=== PATIENT | female | born 1980 ===

== ENCOUNTER 2021-07-16 08:23 | Inpatient (IN) | payer OTHER ==
[~2021-07-16] VITALS: Ht 157.5 cm; Wt 110.2 kg
[2021-07-16] MEDS ORDERED: POTCHL20ER PO (08:37)
[2021-07-16] MEDS ORDERED: TRAM50 PO (08:37)
[2021-07-16] MEDS ORDERED: RIFA550T2 PO (08:38)
[2021-07-16] MEDS ORDERED: PANT40 PO (08:38)
[2021-07-16] MEDS ORDERED: FURO40 PO (08:41)
[2021-07-16] MEDS ORDERED: ZYRTEC10 M2 PO (08:41)
[2021-07-16] MEDS ORDERED: ALDACTONE100 MG PO (08:41)
[2021-07-16] MEDS ORDERED: CONSTULOSE PO (08:43)
[2021-07-16] MEDS ORDERED: HYDPAM100 PO (08:44)
[2021-07-16] MEDS ORDERED: PROM25 PO (08:45)
[2021-07-16] MEDS ORDERED: Naltrexone HCl50 MG PO (08:46)
[2021-07-16 08:57] LABS: BASOPHILS ABSOLUTE AUTO 0.05 K/mm3 (0.00-0.23); BASOPHILS PERCENT AUTO 1 % (0-2); EOSINOPHILS ABSOLUTE AUTO 0.05 K/mm3 (0.00-0.68); EOSINOPHILS PERCENT AUTO 1 % (0-6); Hematocrit 30.9 % (33.0-51.0); Hemoglobin 10.1 g/dL (11.5-16.0); IMMATURE GRAN ABSOLUTE AUTO 0.01 K/mm3 (0.00-0.10); IMMATURE GRAN PERCENT AUTO 0 % (0-1); LYMPHOCYTES PERCENT AUTO 17 % (21-46); MONOCYTES ABSOLUTE AUTO 0.43 K/mm3 (0.16-1.47); MONOCYTES PERCENT AUTO 9 % (4-13); Mean Corpuscular HGB 31.7 pg (26.0-34.0); Mean Corpuscular HGB Conc 32.7 g/dL (31.5-36.5); Mean Corpuscular Volume 97 fL (80-100); NEUTROPHILS ABSOLUTE AUTO 3.31 K/mm3 (1.96-9.15); NEUTROPHILS PERCENT AUTO 71 % (41-73); Platelet Count 76 K/mm3 (150-400); RDW Coefficient Variation 14.7 % (11.7-14.2); RDW Standard Deviation 49.7 fL (35.1-46.3); Red Blood Cell Count 3.19 M/mm3 (3.80-5.20); White Blood Cell Count 4.65 K/mm3 (4.00-11.30)
[2021-07-16 09:15] LABS: Source, Urine Catheter
[2021-07-16 09:18] LABS: Albumin, Blood 1.9 g/dL (3.4-5.0); Albumin/Globulin Ratio 0.3 (0.8-1.8); Bilirubin, Direct 1.7 mg/dL (0.0-0.3); Bilirubin, Indirect 1.3 mg/dL (0.1-0.7); Globulin, Blood 6.2 g/dL (2.2-4.0); Total Protein, Blood 8.1 g/dL (6.4-8.2)
[2021-07-16 09:19] LABS: Albumin, Blood 1.9 g/dL (3.4-5.0); Albumin/Globulin Ratio 0.3 (0.8-1.8); Bun/Creatinine Ratio 18.8 (12.0-20.0); Calcium, Blood 8.7 mg/dL (8.5-10.1); Creatinine, Blood 1.17 mg/dL (0.40-1.00); Globulin, Blood 6.1 g/dL (2.2-4.0); Potassium, Blood 4.8 mmol/L (3.5-5.5)
[2021-07-16 09:23] LABS: Appearance, Urine Clear (Clear); Bilirubin, Urine Neg (Neg); Blood, Urine 5+ (Neg); Color, Urine Yellow (P-Yellow); Glucose Qualitative, Urine Neg (Neg); Ketones, Urine Neg (Neg); Leukocyte Esterase, Urine Neg (Neg); Nitrite, Urine Neg (Neg); Protein, Urine 1+ (Neg); Urobilinogen, Urine NORM (Normal)
[2021-07-16 09:33] LABS: International Normalized Ratio 1.38; Prothrombin Time Results 14.2 Sec (9.7-11.5)
[2021-07-16 09:36] LABS: Bacteria Few /hpf; Granular Casts 0-2 /lpf (0); Red Blood Cells, Urine 50-100 /hpf (0-2); Squamous Epithelial Cells Rare /hpf (Few); White Blood Cells, Urine 0-2 /hpf (0-5)
[2021-07-16 09:37] LABS: Renal Epithelial Rare /hpf (0-Rare)
[2021-07-16 09:50] LABS: U Amphetamine Screen Not Detected; U Barbituate Screen Not Detected; U Benzodiazapine Screen DETECTED; U Buprenorphine Screen Not Detected; U Cannabinoids Screen Not Detected; U Cocaine Screen Not Detected; U Methadone Screen Not Detected; U Methamphetamine Screen Not Detected; U Opiates Screen Not Detected; U Oxycodone Screen Not Detected; U Phencyclidine Screen Not Detected; U Propoxyphene Screen Not Detected
--- NOTE | 2021-07-16 15:43 | NUR ---
PATIENT ARRIVAL PATIENT ARRIVED FROM ED BY GURNY AND TRANSFERD TO PCU BED BY SLIDER SHEET. VSS. SPO2 >90% ON RA. TELE SINUS TACH. PATIENT IS A/OX3. WAS UNABLE TO STATE THE DATE TODAY. PATIENT HAS TREMORS. CIWA IS 8. BED IN LOWEST POSITION AND CALL LIGHT WITHIN REACH. WILL CONTINUE TO MONITOR AND PROVIDE CARE.
--- NOTE | 2021-07-16 17:09 | NUR ---
SHIFT SUMMARY PATIENT IS A/OX4, DROWSY AT THE MOMENT AND SLEEPING. VSS. TELE SINUS TACH. CIWA NEEDED, SEE ORDERS. PATIENT REPORTS NO CHEST PAIN, PAIN, OR SOB. PATIENT HAS A FERRARO IN PLACE DRAINING WITH GRAVITY. NO ACUTE CHANGES. CALL LIGHT WITHIN REACH. WILL CONTINUE TO MONITOR AND PROVIDE CARE UNTIL HAND OFF WITH NEXT SHIFT.
--- NOTE | 2021-07-17 04:08 | NUR ---
SHIFT AUMMARY: PT HAD RESTLESS SHIFT, CONFUSED AND FOGERTFUL AFTER REORIENTATION, CALLING OUT BECAUSE SHE STATES SHES "LONELY" VSS, REMAINS IN AFIB WITH RATE IN THE 90'S, URINE SPEC OBTAINED AND SENT EARLIER IN SHIFT, PT C/O CHRONIC BACK PAIN, REPOSITIONED BUT PT STATES NO RELIEF, CALL TO MD AND TYLENOL SUPP GIVEN WITH MODERATE EFFECT, O2 SATS >95%, FERRARO DRAINING GOOD AMOUNT OR URINE, BED LOCKED AND LOW, CALL LIGHT IN REACH, BED ALARM ACTIVATED. VANESSA HERRON
[2021-07-17 04:32] LABS: BASOPHILS ABSOLUTE AUTO 0.05 K/mm3 (0.00-0.23); BASOPHILS PERCENT AUTO 1 % (0-2); EOSINOPHILS ABSOLUTE AUTO 0.16 K/mm3 (0.00-0.68); EOSINOPHILS PERCENT AUTO 4 % (0-6); Hematocrit 27.2 % (33.0-51.0); Hemoglobin 8.8 g/dL (11.5-16.0); IMMATURE GRAN ABSOLUTE AUTO 0.01 K/mm3 (0.00-0.10); IMMATURE GRAN PERCENT AUTO 0 % (0-1); LYMPHOCYTES ABSOLUTE AUTO 1.15 K/mm3 (0.84-5.20); LYMPHOCYTES PERCENT AUTO 28 % (21-46); MONOCYTES ABSOLUTE AUTO 0.45 K/mm3 (0.16-1.47); MONOCYTES PERCENT AUTO 11 % (4-13); Mean Corpuscular HGB 31.8 pg (26.0-34.0); Mean Corpuscular HGB Conc 32.4 g/dL (31.5-36.5); Mean Corpuscular Volume 98 fL (80-100); Mean Platelet Volume 10.4 fL (9.1-12.4); NEUTROPHILS ABSOLUTE AUTO 2.24 K/mm3 (1.96-9.15); NEUTROPHILS PERCENT AUTO 55 % (41-73); Platelet Count 73 K/mm3 (150-400); RDW Standard Deviation 50.3 fL (35.1-46.3); Red Blood Cell Count 2.77 M/mm3 (3.80-5.20); White Blood Cell Count 4.06 K/mm3 (4.00-11.30)
[2021-07-17 04:49] LABS: Albumin, Blood 1.5 g/dL (3.4-5.0); Anion Gap 7 mmol/L (6-16); Blood Urea Nitrogen 17 mg/dL (8-24); CO2, Blood 19 mmol/L (21-32); Calcium, Blood 8.1 mg/dL (8.5-10.1); Chloride, Blood 112 mmol/L (98-108); Creatinine, Blood 1.06 mg/dL (0.40-1.00); Glomerular Filtration Rate 57 (60-); Glucose, Blood 112 mg/dL (70-99); Magnesium, Blood 1.4 mg/dL (1.6-2.4); Phosphorus, Blood 3.3 mg/dL (2.5-4.9); Potassium, Blood 4.2 mmol/L (3.5-5.5); Sodium, Blood 138 mmol/L (136-145)
--- NOTE | 2021-07-17 09:27 | NUR ---
CARE ASSUMPTION THIS RN ASSUMED CARE AT 0700. VSS. TELE SINUS TACH AT 103. A/OX4. PATIENT HAS NO CHEST PAIN, PAIN, OR SOB. FERRARO IN PLACE DRAINING WITH GRAVITY. RECTAL TUBE IN PLACE DRAINING WITH GRAVITY. PHYSICAL THERAPY IN WITH PATIENT WITH AM. BED IN LOWEST POSITION AND CALL LIGHT WITHIN REACH. WILL CONTINUE TO MONITOR AND PROVIDE CARE.
--- NOTE | 2021-07-17 17:49 | NUR ---
SHIFT SUMMARY PATIENT A/OX4. CIWA HAS BEEN 1-2, PER ORDER DO IT FOR 4HOURS THE NEXT 72 HOURS AND THEN CAN BE DC'D. VSS. TELE SINUS TACH. PATIENT REPORS PAIN FROM THE RECTAL TUBE THAT COMES AND GOES. PATIENT HAS LEAKING AROUND THE RECTAL TUBE. RECTAL TUBE IS DRAINING WITH GRAVITY. FERRARO CATH DRAINING WITH GRAVITY. PATIENT TURNS INDEPENDENTLY WITH REMINDERS AND MILD ASSISTANCE. PATIENT MOM IS AT BEDSIDE. CALL LIGHT IS WITHIN REACH AND BED IN LOWEST POSITION. NO ACUTE CHANGES. WILL CONTINUE TO MONITOR AND PROVIDE CARE UNTIL HAND OFF WITH NEXT SHIFT.
[2021-07-18 05:34] LABS: Hematocrit 24.2 % (33.0-51.0); International Normalized Ratio 1.52; Mean Corpuscular HGB 31.7 pg (26.0-34.0); Mean Corpuscular HGB Conc 33.1 g/dL (31.5-36.5); Mean Corpuscular Volume 96 fL (80-100); Mean Platelet Volume 10.5 fL (9.1-12.4); Platelet Count 72 K/mm3 (150-400); Prothrombin Time Results 15.5 Sec (9.7-11.5); RDW Coefficient Variation 15.3 % (11.7-14.2); RDW Standard Deviation 52.7 fL (35.1-46.3); Red Blood Cell Count 2.52 M/mm3 (3.80-5.20); White Blood Cell Count 4.12 K/mm3 (4.00-11.30)
[2021-07-18 05:39] LABS: Albumin, Blood 1.3 g/dL (3.4-5.0); Anion Gap 7 mmol/L (6-16); Blood Urea Nitrogen 12 mg/dL (8-24); CO2, Blood 20 mmol/L (21-32); Chloride, Blood 111 mmol/L (98-108); Creatinine, Blood 0.92 mg/dL (0.40-1.00); Glomerular Filtration Rate >60 (60-); Glucose, Blood 116 mg/dL (70-99); Lactate Dehydrogenase (Ld),Bld 185 U/L (100-240); Phosphorus, Blood 3.8 mg/dL (2.5-4.9); Potassium, Blood 4.1 mmol/L (3.5-5.5); Sodium, Blood 138 mmol/L (136-145)
--- NOTE | 2021-07-18 06:02 | NUR ---
PT REQUESTING RECTAL TUBE BE REMOVED, BALLOON DEFLATED AND REMOVED INTACT, LARGE AMOUNT OF SOFT STOOL EVACUATED AFTER TUBE REMOVAL, STOOL TOO THICK TO DRAIN THROUGH RECTAL TUBE DESPITE IRRIGATIONS. VANESSA HERNÁNDEZ
--- NOTE | 2021-07-18 08:10 | NUR ---
INITIAL ASSESSMENT: PATIENT IS AWAKE ALERT AND ORIENTED SITTING UP IN BED EATING BREAKFAST. SHE DENIES PAIN AT THIS TIME, STATES SHE IS GREATFUL HER RECTAL TUBE IS OUT BECAUSE IT WAS VERY UNCOMFORTABLE. HRR. LS CTA, BIOX WNL ON RA. ABD VERY DISTENDED, PT SCHEDULED FOR A PARACENTESIS THIS AM. ABD TENDER TO LIGHT PALPATION. HYPERACTIVE BT. PT WAS ASSISTED OOB TO THE BSC, STEADY GAIT, HAD A MEDIUM LOOSE NON-FORMED BM. FERRARO CATH PATENT AND DRAINING ORANGE URINE, WILL BLADDER TRAIN AND REMOVE THIS SHIFT. VSS. PPP. TRACE EDEMA NOTED TO BLE. IV TO RIGHT FA, LEAKING-WILL LOOK FOR ANOTHER SITE. PT BACK IN BED AM MEDS GIVEN AT THIS TIME, SWALLOWED WITH WATER WITHOUT DIFFICULTY. PT DENIES FURTHER NEEDS, CALL LIGHT IN REACH, WILL CONTINUE TO MONITOR.
--- NOTE | 2021-07-18 09:50 | NUR ---
PT DOWN TO [facility] VIA BED WITH TECH.
[2021-07-18 11:09] LABS: Automated BF WBC Count 0.111 K/mm3 (0-999); Body Fluid WBC Count 111 /mm3 (0-999)
[2021-07-18 11:30] LABS: Albumin, Body Fluid 0.5 g/dL
[2021-07-18 11:31] LABS: RBC Count, Body Fluid 450 /mm3 (0-0)
[2021-07-18 11:42] LABS: Glucose, Body Fluid 130 mg/dL
[2021-07-18 11:46] LABS: Appearance, Body Fluid Clear (Clear); Color, Body Fluid Yellow (None-Yellow); Total Cell Count, Body Fluid 100
[2021-07-18 11:47] LABS: Lactate Dehydrogenase, Body Fl 124 U/L
[2021-07-18 11:54] LABS: Protein, Body Fluid 2.1 g/dL
--- NOTE | 2021-07-18 12:00 | NUR ---
UPDATE: Patient returned from her paracentesis, 8L removed per [employer] tech Adia. I called the patient flow contracts advisor we are having a difficult time getting IV access. Patient has been able to work with occupational therapy. VSS. Will continue to monitor.
[2021-07-18 12:17] LABS: pH, Body Fluid 7.5
--- NOTE | 2021-07-18 17:16 | NUR ---
Summary: Patient has done really well today. She has been up out of bed. She is oriented x4. CIWA less than 8 t/o the shift. She went down for a paracentesis this shift, 8L removed 50 gm Albumin given. No acute changes this shift. VSS. Possible plan for DC tomorrow. Will report to oncoming RN.
--- NOTE | 2021-07-18 22:58 | NUR ---
ASSUMED CARE OF PT AT 1900. PATIENT LAYING IN BED, APPEARS VERY LETHARGIC. CIWA OF 2. A/OX4. GENERALIZED WEAKNESS. LS NORMAL. SINUS TACH ON MONITOR AROUND 117 WITH STRONG PULSES IN BOTH PEDALS AND RADIALS. REPORTS NO C/P. MILD PAIN AT PARACENTESIS SITE. LARGE AMOUNT OF ABDOMEN DISTENTION NOTED WITH HYPERACTIVE BOWEL SOUNDS. TRACE BLE EDEMA. FERRARO CATH DRAINING TO GRAVITY CLEAR URINE, CURRENTLY DOING BLADDER TRAINING TO DC THE CATH. BOWEL MOVEMENT PRODUCED LIQUID DIARRHEA BROWN/YELLOW IN COLOR ON THE BSC. PATIENT'S BP IS SOFT WITH SBP IN LOW 100'S.
[2021-07-19 04:22] LABS: Hematocrit 25.7 % (33.0-51.0); Hemoglobin 8.6 g/dL (11.5-16.0); Mean Corpuscular HGB 32.2 pg (26.0-34.0); Mean Corpuscular HGB Conc 33.5 g/dL (31.5-36.5); Mean Corpuscular Volume 96 fL (80-100); Mean Platelet Volume 10.3 fL (9.1-12.4); Platelet Count 77 K/mm3 (150-400); RDW Coefficient Variation 15.4 % (11.7-14.2); RDW Standard Deviation 53.1 fL (35.1-46.3); Red Blood Cell Count 2.67 M/mm3 (3.80-5.20); White Blood Cell Count 4.18 K/mm3 (4.00-11.30)
[2021-07-19 05:17] LABS: Albumin, Blood 1.6 g/dL (3.4-5.0); Albumin/Globulin Ratio 0.3 (0.8-1.8); Bilirubin, Total 2.2 mg/dL (0.1-1.0); Bun/Creatinine Ratio 10.1 (12.0-20.0); Calcium, Blood 8.3 mg/dL (8.5-10.1); Creatinine, Blood 1.09 mg/dL (0.40-1.00); Globulin, Blood 4.6 g/dL (2.2-4.0); Potassium, Blood 4.4 mmol/L (3.5-5.5); Total Protein, Blood 6.2 g/dL (6.4-8.2)
--- NOTE | 2021-07-19 05:37 | NUR ---
URINARY CATH DC'D AT 0510, PATIENT ABLE TO URINATE AT 0520.
--- NOTE | 2021-07-19 06:18 | NUR ---
PATIENT HAD A VERY DIFFICULT TIME SLEEPING LAST NIGHT, WITH NO SOLID BLOCK OF SLEEP NOTED. ONE EPISODE OF NAUSEA THAT ACCORDING TO THE PT THE PRN WORKED WELL FOR. VSS. WILL REPORT TO DAYSHIFT RN.
--- NOTE | 2021-07-19 08:10 | NUR ---
INITIAL ASSESSMENT: Patient is awake sitting up in bed eating breakfast. Patient assisted to BSC, pt had a BM. Patient assisted back to bed. Alert and orented x4. Reports some tenderness to abd post paracentesis. bt+. PPP. Skin dry and wrinkled to shins. VSS. AM meds given with a sip of water. Patient denies other needs at this time, call light in reach. Will continue to monitor.
--- NOTE | 2021-07-19 11:06 | NUR ---
Update: Patient is resting in bed. Hospitalists and med students have rounded. Possible plan for discharge today, PT recommended SNF, will coordinate with DC planning. Patient denies needs. Will continue to monitor.
[2021-07-19] MEDS ORDERED: PROBIOTIC1 EA13 PO (12:48)
[2021-07-19] MEDS ORDERED: SULTRIDS PO (12:48)
--- NOTE | 2021-07-19 14:00 | NUR ---
DISCHARGE: Patient was able to ambulate with PT in the hallway with FWW, PT re-eval recommendations are for home health. MD updated. Discharge orders complete. Patient and mother verbalize understanding of discharge instructions. Patient to home with mother via WC.
== END 2021-07-19 14:06 | disposition home or self-care (01) | DRG 433 ==
LOC: ER 08:23 → PCU 13:04
PROVIDERS: Family Medicine; Student in an Organized Health Care Education/Training Program; ADMIT Internal Medicine
PROC: 0W9G3ZZ Drainage of Peritoneal Cavity, Percutaneous Approach (ICD-10-PCS; principal; 2021-07-18)
DX: K70.40 Alcoholic hepatic failure without coma (principal); F10.988 Alcohol use, unspecified with other alcohol-induced disorder; E72.20 Disorder of urea cycle metabolism, unspecified; Z68.41 Body mass index [BMI] 40.0-44.9, adult; K70.31 Alcoholic cirrhosis of liver with ascites; D64.9 Anemia, unspecified; D69.6 Thrombocytopenia, unspecified; E66.9 Obesity, unspecified; Z98.890 Other specified postprocedural states; N18.30 Chronic kidney disease, stage 3 unspecified; Z79.899 Other long term (current) drug therapy
CPT/HCPCS: 36415; 49083; 51702; 71045; 76700; 80053; 80069; 80076; 81001; 82042; 82140; 82330; 82945; 83615; 83735; 83986; 84157; 85025; 85027; 85610; 85730; 87070; 87205; 89051; 93005; 93010; 94762; 96374; 97110; 97116; 97161; 97166; 97530; 97535; 99285-25; A9270; G0480; J0696; J1940; J2060; J2550; J3475; P9046; P9612